=== PATIENT | female | born 1960 | race Caucasian/White ===

== ENCOUNTER → 2016-11-12 | Outpatient (CLI) | payer OTHER ==
[~2016-11-12] MED LIST: APR25; BND25X; CLX20; CONJ0.3T3; FLUO20CA35 PO; KRIL1000 PO; LEVO50TA60; MULT-506 PO
--- NOTE | 2016-11-12 16:46 | MAMMOGRAPHY REPORT ---
BILATERAL DIGITAL SCREENING MAMMOGRAM WITH CAD: 11/12/2016 CLINICAL HISTORY: Routine screening examination. TECHNIQUE: Bilateral CC and MLO views were obtained. Current study was also evaluated with a Comput er Aided Detection (CAD) system. COMPARISON: Comparison is made to exams dated: 11/01/2015 mammogram, 08/03/2015 ultrasound, 08/03/20 15 mammogram, 10/26/2014 ultrasound, 10/26/2014 mammogram, and 10/17/2014 mammogram - [facility]. BREAST COMPOSITION: The tissue of both breasts is heterogeneously dense, which may obscure small ma sses. FINDINGS: A 6.8 mm circumscribed mass in the far superior right breast, best seen on the MLO view a ppears increasingly prominent in size comparing to the prior exams. Further evaluation with targete d ultrasound and possible additional mammographic views is recommended, although this could represen t a cyst, given the cysts seen on prior right breast ultrasounds. There is a stable metallic biopsy marker in the approximate 9:00 right breast. No other suspicious mass, architectural distortion or cluster of microcalcifications is seen. IMPRESSION: ACR BI-RADS CATEGORY 0: INCOMPLETE EVALUATION: NEED ADDITIONAL IMAGING EVALUATION The increasingly prominent circumscribed mass in the superior right breast needs additional evaluati on. The patient will be called to schedule an appointment. Approximately 10% of breast cancers are not detected with mammography. A negative mammographic repor t should not delay biopsy if a clinically suggestive mass is present. Brittanie Contreras M.D. ay/:11/12/2016 16:02:06 Treatment Plant Mechanic: Gifty SMITH(R)(M), [facility] letter sent: Addl Imaging 0 BI-RADS Code: ACR BI-RADS Category 0: Incomplete Evaluation: Need Additional Imaging Evaluation
== END | disposition home or self-care (01) ==
LOC: C.MAMM 08:40
PROVIDERS: ATTEND Nurse Practitioner
DX: Z12.31 Encounter for screening mammogram for malignant neoplasm of breast (principal); N63 Unspecified lump in breast

== ENCOUNTER → 2016-11-26 | Outpatient (CLI) | payer OTHER ==
--- NOTE | 2016-11-26 15:29 | MAMMOGRAPHY REPORT ---
UNILATERAL RIGHT DIGITAL DIAGNOSTIC MAMMOGRAM TOMOSYNTHESIS AND TARGETED RIGHT ULTRASOUND: 11/26/2016 CLINICAL HISTORY: 56-year-old woman called back from screening mammography for an enlarging mass in the superior right breast. History of prior benign right breast ultrasound guided core biopsy in th e 9:00 axis. TECHNIQUE: Right exaggerated lateral CC and right MLO 2-D digital and tomosynthesis images were obt ained after placement of a skin BB marker. It should be noted that the MLO view is mislabeled as CC . COMPARISON: Comparison is made to exams dated: 11/12/2016 mammogram, 11/01/2015 mammogram, 08/03/2015 ultrasound, 08/03/2015 mammogram, 10/26/2014 ultrasound, and 10/26/2014 mammogram - [facility]. BREAST COMPOSITION: The tissue of the right breast is heterogeneously dense, which may obscure smal l masses. FINDINGS: First real-time high-resolution ultrasound was performed in the upper outer quadrant of th e right breast to evaluate for the circumscribed 6 x 7 mm mass seen mammographically, that increased in size comparing to prior mammograms. In the 10:00 right breast, 6 cm from the nipple, there is a lobulated anechoic benign pseudocyst with posterior acoustic enhancement. It measures 8.1 x 6.1 x 5.6 mm. Incidental note is made of an adjacent smaller anechoic cyst measuring 3.5 x 3.6 x 3.7 mm. A skin BB was then placed overlying the 8 mm cyst in the 10:00 right breast, 6 cm from the nipple an d right mammography was performed. The skin BB aligns with the enlarging mammographic mass in both planes, confirming mammographicsonographic correlation and also confirming benignity given that thi s represents a simple cyst on ultrasound. No further workup is needed at this time. No focal area of architectural distortion, other suspicious mass or suspicious microcalcifications are identified in the visualized right breast. Recommend follow-up in 1 year for next annual screening mammogram. IMPRESSION: ACR BI-RADS CATEGORY 2: BENIGN, TARGETED ULTRASOUND ACR BI-RADS CATEGORY 2: BENIGN The enlarging mammographic mass in the upper outer posterior right breast correlates with the benign anechoic simple cyst identified in the 10:00 right breast on ultrasound. This confirms mammographi csonographic correlation and also confirms benignity. Advise follow-up in 1 year for next annual s creening mammogram. These results and recommendations were discussed with the patient at the time of the exam. Approximately 10% of breast cancers are not detected with mammography. A negative mammographic repor t should not delay biopsy if a clinically suggestive mass is present. Brittanie Contreras M.D. ay/:11/26/2016 11:40:45 Legal Administrative Assistant: Daxa SMITH(R)(M), [facility] letter sent: Normal 1/2 BI-RADS Code: ACR BI-RADS Category 2: Benign Ultrasound BI-RADS: ACR BI-RADS Category 2: Benign
== END | disposition home or self-care (01) ==
LOC: C.MAMM 09:50
PROVIDERS: ATTEND Nurse Practitioner
DX: N63 Unspecified lump in breast (principal); N60.01 Solitary cyst of right breast

== ENCOUNTER 2017-04-04 08:22 | Emergency (ER) | payer OTHER ==
[~2017-04-04] VITALS: Ht 162.6 cm; Wt 79.2 kg
[~2017-04-04 08:22] MED LIST changes: -FLUO20CA35 PO; -KRIL1000 PO; -MULT-506 PO
[2017-04-04 08:23] VITALS: TEMP 36.5; Ht 162.6 cm; Wt 79.2 kg
[2017-04-04] MEDS ORDERED: MULT-506 PO (08:44)
[2017-04-04] MEDS ORDERED: KRIL1000 PO (08:44)
[2017-04-04] MEDS ORDERED: FLUO20CA35 PO (08:44)
--- NOTE | 2017-04-04 09:44 | DIAGNOSTIC IMAGING REPORT ---
LEFT FOOT MIN 3 VIEWS ROUTINE CLINICAL HISTORY: Left foot pain status post trauma COMPARISON: None. 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 No acute fractures or dislocations are visualized. IMPRESSION: No fractures identified. Electronically signed by: Jori Vela M.D. 04/04/2017 9:42 AM Dictated Date/Time: 04/04/2017 9:42 AM
--- NOTE | 2017-04-04 09:46 | DIAGNOSTIC IMAGING REPORT ---
LEFT WRIST MIN 3 VIEWS ROUTINE CLINICAL HISTORY: Left wrist pain status post trauma COMPARISON: None. DISCUSSION: There is a probable subtle nondisplaced distal radial fracture. No ulnar fractures are visualized. There are no subluxations. IMPRESSION: Probable nondisplaced distal radial fracture. A repeat radiograph in 10-14 days is recommended. Electronically signed by: Jori Vela M.D. 04/04/2017 9:45 AM Dictated Date/Time: 04/04/2017 9:42 AM
--- NOTE | 2017-04-04 09:54 | DIAGNOSTIC IMAGING REPORT ---
LEFT RIBS UNILATERAL WITH PA CHEST CLINICAL HISTORY: Left rib pain following fall. COMPARISON STUDY: No previous studies for comparison. FINDINGS: There is no pneumothorax or pleural effusion. No airspace opacities are identified. Mild cardiomegaly is noted. Pulmonary vascularity is normal. No acute left rib fractures are identified. IMPRESSION: 1. No pneumothorax. No acute left rib fractures identified. 2. Mild cardiomegaly. Electronically signed by: Ian Altamirano M.D. 04/04/2017 9:53 AM Dictated Date/Time: 04/04/2017 9:51 AM
[2017-04-04 10:21] VITALS: BP 160/73; PULSE 69; O2SAT 97
--- NOTE | 2017-04-04 15:50 | EMERGENCY ROOM VISIT NOTE ---
ED Visit Note First contact with patient: 08:27 Chief Complaint: I fell on a wet floor and injured myself. History of Present Illness: Ms. Storm is a 56-year-old white female who ambulates into the ED with multiple complaints following a fall. Patient reports she was cleaning at her home yesterday. Her floors were wet and she was walking in her bare feet. When she went into the kitchen she slipped and fell. She reports before the fall she had no lightheadedness or dizziness, the time of the fall she did not strike her head or have a loss of consciousness and since the fall she has had no symptoms of head injury. She does report when she fell she fell onto a copper pot that had a handle Currently she is complaining of left wrist pain, left rib pain, left foot pain. She reports her worse pain is her left ribs. She describes these as a sharp sensation. She places her discomfort over the lateral left thorax over the lower ribs. She rates her discomfort 8/10. Her pain is nonradiating. Her pain worsens with palpation, deep inspiration and abduction of the shoulder. Additionally she is complaining of severe pain over the distal left radius and ulna. She describes this also as a sharp pain. She does rate this discomfort 8 /10. The pain is nonradiating. The pain worsens with palpation, flexion, extension and radial and ulnar deviation of the wrist. She is not identified any alleviating factors related to the pain. Additionally she reports she is having pain over the volar surface of the foot in the area of the second and third metatarsals. Her pain worsens minimally with palpation and ambulation. She reports she has been taken Tylenol for her pains which her last dose at 4: 00 this morning with mild relief of her discomfort She denies any associated neck/back pain, extremity weakness/numbness/tingling, shortness of breath, cough, wheezing, abdominal pain, nausea/vomiting, hematuria , rectal bleeding, bowel and bladder dysfunction. Review of Systems: As noted above in history of present illness. All body systems were reviewed and found to be negative as noted above. Past Medical History: Status post section and unspecified laparoscopy surgeries. Current Medications: Prozac, multivitamins. Allergies to Medications: Neck or back. Social History: Patient is not employed; she lives there and feels safe in her home environment; she denies tobacco and alcohol use. Physical Examination: Vital Signs: Date Time Temp Pulse Resp B/P (MAP) Pulse Ox O2 Delivery O2 Flow Rate FiO2 04/04/17 10:21 69 160/73 97 04/04/17 08:23 36.5 70 16 155/83 97 Room Air GENERAL: 56-year-old female in mild to moderate distress due to pain, nontoxic- appearing, afebrile and hemodynamically stable. NEUROLOGICAL: Awake, alert and oriented to person, place and time. Answering questions appropriately and following commands. Normal gait. Good hand eye coordination. No focal motor or sensory deficits. Cranial nerves II through XII grossly intact. Good short-term and long-term recall. Able to spell and count backwards. Normal heel jay test. SKIN: Warm, dry and pink. No open soft tissue trauma noted. HEENT: Atraumatic and normocephalic. No raccoon's eyes or barnett signs. No drainage in the ears of the nostril; no hemotympanum. No facial bony tenderness , swelling or ecchymosis. PERRLA. EOMI without nystagmus no malocclusion. No intraoral trauma. Airway patent. Speech normal. Trachea midline. No jugular venous distention. BACK: No tenderness over the bony cervical, thoracic and lumbar spine. No tenderness throughout the paraspinous muscles. No CVA tenderness. THORAX: Lungs sounds are clear to auscultation and equal bilaterally with symmetrical chest wall. No wheezing, rales or rhonchi. Moderate tenderness over the left lateral rib cage in the areas of ribs 6 through 8. Do not appreciate any bony deformity, bony crepitus, swelling or ecchymosis. ABDOMEN: Flat, soft and nontender. Over the lateral aspect of the mid left abdomen low the ribs patient has a contusion. This area is mildly tender. Positive bowel sounds in all quadrants. No guarding, rigidity or organomegaly. LEFT UPPER EXTREMITY: No gross bony deformity. No tenderness in the shoulder, elbow, proximal forearm or hand. Moderate tenderness over the distal radius and ulna without bony deformity, bony crepitus, swelling or ecchymosis. No tenderness in the anatomical snuffbox. With the risk stabilize patient has full range of motion in flexion and extension of the elbow and flexion and extension of all MCP, PIP and DIP joints. Throughout the hand skin was warm and pink and capillary refill is brisk. She was able to the stinger slight sensations through all dermatomes. LEFT LOWER EXTREMITY: No gross bony deformity. No shortening or malrotation. No tenderness in the hip, thigh, knee, lower leg or ankle. Moderate tenderness over the second and third metatarsals without bony deformity, bony crepitus, swelling or ecchymosis. Full range of motion in flexion and extension of the knee and inner flexion and dorsiflexion of the ankle. Patient was able to wiggle her toes. Throughout the foot the skin was warm and pink and capillary refill is brisk. She is able to distinctly slight sensations through all dermatomes. ED Course: Patient is assessed as noted above. Patient medication list was reviewed. Patient was given ice for pain and comfort; she was offered pain medications multiple times and refused. Left Rib X-Rays: Were read by myself and the radiologist showing a normal PA chest with no signs of infiltrates, effusions or pneumothorax. Normal heart silhouette. No identifiable rib fractures were noted. Left Wrist X-Ray: Was read by myself and the radiologist and the radiologist felt there was a probable subtle nondisplaced fracture of the distal radius; he recommended repeat x-rays in 10-14 days. Left Foot X-Rays: Were read by myself and the radiologist and shows no acute fractures or dislocations. Radiologist notes mild osteoarthritic changes in the first MTP joint. Patient's wrist was placed in a lacer splint. Patient was able to produce a urine sample that was observed and no gross blood was identified. Patient was educated about today's findings and instructed on her treatment plan ; she verbalized understanding and agreement with this plan. Clinical Impression: Fall. Left lateral rib pain. Left lateral abdominal contusion. Left wrist pain; possible fracture. Left foot pain. Disposition: Patient discharged home in stable condition accompanied by her ; prior to departure she was reassessed and subjectively reported she was feeling worse and rated her overall discomfort 7/10. Plan: Comfort measures were discussed with the patient including alternating ibuprofen and acetaminophen for pain every 3 hours, ice on areas of pain, wrist splint use. Patient was encouraged to follow-up with her PCP and she was given name of the orthopedist on-call and she could follow-up with them for repeat x-ray of her wrist in 10-14 days. Patient was encouraged return to the ED for worsening/uncontrolled pain, any shortness of breath or difficulty breathing, extremity weakness/numbness/ tingling, vomiting or any new/concerning symptoms.
== END 2017-04-04 10:24 | disposition home or self-care (01) ==
LOC: C.EDB 08:23
DX: S52.502A Unspecified fracture of the lower end of left radius, initial encounter for closed fracture (principal); S30.1XXA Contusion of abdominal wall, initial encounter; R07.81 Pleurodynia; M79.672 Pain in left foot; Y93.E5 Activity, floor mopping and cleaning; Y92.010 Kitchen of single-family (private) house as the place of occurrence of the external cause; Z79.899 Other long term (current) drug therapy

== ENCOUNTER → 2017-04-15 | Outpatient (CLI) | payer OTHER ==
[~2017-04-15] MED LIST changes: -APR25; -BND25X; -CLX20; -CONJ0.3T3; +FLUO20CA35 PO; +KRIL1000 PO; -LEVO50TA60; +MULT-506 PO
--- NOTE | 2017-04-15 11:27 | DIAGNOSTIC IMAGING REPORT ---
LEFT WRIST MIN 3 VIEWS ROUTINE CLINICAL HISTORY: M25.532 Acute wrist pain, [id number] Abnormal finding on radiology COMPARISON: 04/04/2017 DISCUSSION: Cortical lobulation of the distal radius appears to represent findings secondary to old trauma. There is, however a nondisplaced cortical fracture involving the articular services of the radius. This is best seen in the prior study due to overlap artifact. Mild soft tissue edema is present. Lateral projection demonstrates a cortical defect dorsal aspect of the radius. This is somewhat more apparent on the prior study. IMPRESSION: 1. Nondisplaced cortical fracture dorsal aspect distal radius.. 2. Nondisplaced fracture articular services mid radius. 3. Alignment is anatomic throughout. The above report was generated using voice recognition software. It may contain grammatical, syntax or spelling errors. Electronically signed by: Bernardino Barr M.D. 04/15/2017 11:26 AM Dictated Date/Time: 04/15/2017 11:24 AM
== END | disposition home or self-care (01) ==
LOC: C.RAD 11:06
PROVIDERS: ATTEND Physician Assistant Medical
DX: R93.8 Abnormal findings on diagnostic imaging of other specified body structures (principal); S52.502A Unspecified fracture of the lower end of left radius, initial encounter for closed fracture; X58.XXXA Exposure to other specified factors, initial encounter

== ENCOUNTER → 2017-11-14 | Outpatient (CLI) | payer OTHER ==
--- NOTE | 2017-11-17 07:45 | MAMMOGRAPHY REPORT ---
BILATERAL DIGITAL SCREENING MAMMOGRAM TOMOSYNTHESIS WITH CAD: 11/14/2017 CLINICAL HISTORY: Routine screening. Patient has no complaints. TECHNIQUE: Breast tomosynthesis in addition to standard 2D mammography was performed. Current study was also evaluated with a Computer Aided Detection (CAD) system. COMPARISON: Comparison is made to exams dated: 11/26/2016 mammogram, 11/26/2016 ultrasound, 11/12/2016 mammogram, 11/01/2015 mammogram, 10/26/2014 mammogram, and 10/17/2014 mammogram - [facility]. BREAST COMPOSITION: The tissue of both breasts is heterogeneously dense, which may obscure small mas ses. FINDINGS: No suspicious masses, calcifications, or areas of architectural distortion are noted in ei ther breast. There has been no significant interval change compared to prior exams. Circumscribed 10 mm benign-appearing mass in the right upper outer quadrant was shown to represent a benign cyst on t he prior 2016 ultrasound exam. A biopsy clip is again noted within the right central breast. IMPRESSION: ACR BI-RADS CATEGORY 2: BENIGN There is no mammographic evidence of malignancy. A 1 year screening mammogram is recommended. The pa tient will receive written notification of the results. Approximately 10% of breast cancers are not detected with mammography. A negative mammographic report should not delay biopsy if a clinically suggestive mass is present. Janie Prado M.D. /:11/14/2017 15:22:17 Imaging Tech: Lourdes NESBITT)(M), [facility] letter sent: Normal 1/2 BI-RADS Code: ACR BI-RADS Category 2: Benign
== END | disposition home or self-care (01) ==
LOC: C.MAMM 08:54
PROVIDERS: ATTEND Nurse Practitioner
DX: Z12.31 Encounter for screening mammogram for malignant neoplasm of breast (principal)